=== PATIENT | female | born 1955 | race Caucasian/White ===

== ENCOUNTER 2020-02-10 12:45 | Outpatient (REF) | payer OTHER, SELFPAY ==
--- NOTE | 2020-02-10 | US_ITS ---
EXAMINATION: US RETROPERITONEAL LIMITED (RENAL ONLY) CLINICAL INFORMATION: Nephrolithiasis. COMPARISON: Renal ultrasound 01/11/2019 and 07/30/2018. CT abdomen and pelvis 07/13/2018. TECHNIQUE: Real-time imaging of the kidneys. FINDINGS: RIGHT KIDNEY: 10.2 x 5.1 x 4.9 cm (SAG x AP x TRV). The kidney is normal in size, contour, and echogenicity. Renal cortical thickness is normal. No calculi or focal parenchymal lesions. No hydronephrosis. LEFT KIDNEY: 10.8 x 5.4 x 4.7 cm (SAG x AP x TRV). The kidney is normal in size, contour, and echogenicity. Renal cortical thickness is normal. No renal calculi. There is a question of some dilated calyces present as well as parapelvic cysts. US/US renal BI IMPRESSION: Normal-appearing right kidney. Question mild fullness of the left renal upper collecting system with parapelvic cyst.. No significant hydronephrosis as was seen on prior CT scan of July 13, 2018. No evidence of nephrolithiasis.
== END 2020-02-10 12:46 | disposition home or self-care (01) ==
LOC: HO.HMGCX 12:45
PROVIDERS: PCP Internal Medicine; Visit Provider Urology
DX: N20.0 Calculus of kidney (principal)
CPT/HCPCS: 76775

== ENCOUNTER → 2020-02-24 09:09 | Outpatient (BNVA) | payer OTHER, SELFPAY | PROVIDERS: PCP Internal Medicine; Visit Provider Urology | DX: Z76.89 Persons encountering health services in other specified circumstances (principal) ==

== ENCOUNTER 2020-04-10 08:42 | Outpatient (REF) | payer OTHER, SELFPAY ==
--- NOTE | 2020-04-10 08:45 | XR_ITS ---
EXAMINATION: RADIOGRAPHS RIGHT HAND CLINICAL INFORMATION: Unspecified injury COMPARISON: None TECHNIQUE: 3 views of the right hand were obtained. FINDINGS: Visualized portion of the distal radius and ulna demonstrate no fracture. Carpal rows are well aligned. No carpal, metacarpal or phalangeal fracture. MCP and IP joints are relatively well-maintained diffusely. No focal soft tissue swelling. No radiopaque foreign body. XR/XR hand wrist RT IMPRESSION: No fracture.
--- NOTE | 2020-04-10 08:45 | XR_ITS ---
EXAMINATION: XR RIBS, RIGHT CLINICAL INFORMATION: Pleurodynia COMPARISON: None TECHNIQUE: 3 views of the right ribs were obtained. FINDINGS: Cardiac silhouette is normal in size. The lungs are well aerated. There is no lobar consolidation. No pleural effusion or pneumothorax. No right-sided rib fracture. Partially visualized fusion hardware of the lumbar spine. XR/XR ribs RT min 3V w CXR1V IMPRESSION: No right-sided rib fracture.
== END 2020-04-10 08:43 | disposition home or self-care (01) ==
LOC: HO.HMGCX 08:42
PROVIDERS: PCP Internal Medicine; Visit Provider Nurse Practitioner Family
DX: R07.81 Pleurodynia (principal); S69.91XA Unspecified injury of right wrist, hand and finger(s), initial encounter
CPT/HCPCS: 71101; 73110; 73130

== ENCOUNTER 2022-02-28 09:25 | Outpatient (REF) | payer OTHER, SELFPAY | END 2022-02-28 09:26 | disposition home or self-care (01) | LOC: HO.HMGCX 09:25 | PROVIDERS: Visit Provider Emergency Medicine | DX: Z91.81 History of falling (principal) | CPT/HCPCS: 71101 ==

== ENCOUNTER 2024-11-09 14:04 | Emergency (ER) | payer OTHER, SELFPAY ==
--- OUTSIDE RECORDS SUMMARY | 2024-07-22 07:06 | XMS_ITS ---
Author Organization [facility] Address [address] [place] [address] Care Team Providers Care Tire Adjuster Name Role Phone [facility] Unavailable [phone] REASON FOR VISIT F/U Lab results Encounters Encounter Location Date Provider Diagnosis [facility] [address] [place] [address] 07/22/2024 [facility] Plan Of Treatment No Information Progress Notes * Rafi LUIinDOB:1955 ( 69 yo F)Acc No.[id number]:07/22/2024 Progress Notes Patient: Otto JAVIER Provider: Flower VENTURA [facility] :1955 A ge:68 Y S ex:Female Date:07/22/2024 Phone: Address:[address] [place], [place] [address], [id number] Subjective: * Chief Complaints: * 1 . F/U Lab results. * Medical History: Objective: * Vitals: Assessment: Plan: * Treatment: * Billing Information: * Visit Code: * Procedure Codes: * Electronic signature of [facility] on 11/09/2024 at 05:58 PM EDT Sign off status: Pending * Provider: Flower VENTURA [facility] Date: 0 07/22/2024 Generated for Sam ly/Lalo/eTluissmitting on: 0 11/09/2024 05:58 PM EDT
--- NOTE | ~2024-11-09 | US_ITS ---
EXAMINATION: US TRIPLEX LOWER EXTREMITY, LEFT CLINICAL INFORMATION: Left lower extremity edema,, calf pain and cramping, history of DVT COMPARISON: None available. TECHNIQUE: Color-flow triplex imaging with spectral analysis and compression Doppler were performed on the left lower extremity. FINDINGS: Respiratory variation, normal compression and augmented flow are noted throughout the left lower extremity. The visualized common femoral vein, superficial femoral vein, profunda femoral vein, popliteal vein and midcalf peroneal and posterior tibial venous segments show no evidence of deep venous thrombosis. There is a small amount of anechoic fluid encircling a muscle in the mid calf region and minimal retraction. US/US venous duplex LE LT IMPRESSION: No evidence of deep venous thrombosis involving the left lower extremity. A small volume of fluid encircles calf musculature in the mid lower leg likely related to a tear with minimal retraction. Electronically signed by: Travis Pineda MD 11/09/2024 04:49 PM EDT
[2024-11-09 14:12] VITALS: BP 152/68; PULSE 59; RESP 18; TEMP 36.4; O2SAT 98; BMI 32.4
--- NOTE | 2024-11-09 14:12 | ED.GENADULT ---
HPI - General Adult General Chief complaint: Extremity Injury, Lower Stated complaint: rule out bloodclot on left leg Time Seen by Provider: 11/09/24 16:28 Source: patient and RN notes reviewed Mode of arrival: ambulatory Limitations: no limitations History of Present Illness ED Provider: Lyndon WIN narrative: Pt is a 69 yo female with a history of hyperlipidemia and DVT 10 years ago who presents with left calf pain for a few days. Pt states since this morning pain has been fluctuating, but has increased, and leg feels swollen and tight. She denies trauma to the extremity, redness, or skin trauma. She endorses mild dyspnea since this morning, but feels it is due to anxiety and allergies. She denies chest pain, palpitations, cough, fever, or chills. Ibuprofen does not improve her symptoms. She is not currently on any anticoagulation. Related Data Home Medications ?Medication ?Instructions ?Recorded ?Confirmed pravastatin 40 mg tablet 40 mg PO DAILY 02/24/20 flu vac [id number] 36mos up(PF) 60 ml IM 04/10/20 mcg (15 mcg x4)/0.5 mL IM syringe omeprazole 20 mg capsule,delayed 20 mg PO DAILY 04/10/20 release Previous Rx's ?Medication ?Instructions ?Recorded cyclobenzaprine 5 mg tablet 5 mg PO TID PRN muscle spasm #15 04/10/20 tabs lidocaine 5 % topical patch 1 patch topical DAILY #15 ea 04/10/20 Allergies Allergy/AdvReac Type Severity Reaction Status Date / Time acetaminophen (From PERCOCET) Allergy Unknown NAUSEA & Verified 11/09/24 14:14 VOMITING codeine Allergy Unknown vomiting Verified 11/09/24 14:14 hydrocodone (Vicodin) Allergy Unknown Vomiting Verified 11/09/24 14:14 morphine Allergy Unknown vomiting Verified 11/09/24 14:14 oxycodone (From PERCOCET) Allergy Unknown NAUSEA & Verified 11/09/24 14:14 VOMITING Codeine Sulfate Allergy Unknown vomiting Uncoded 11/09/24 14:14 Review of Systems Constitutional: Constitutional: Denies chills, Denies fatigue, Denies fever(s), Denies headache(s), Denies night sweats and Denies weakness ENT: Denies dizziness, Denies headache(s) and Denies sore throat Cardiovascular: Cardiovascular: Denies chest pain and Reports dyspnea Respiratory: Respiratory: Denies cough and Reports dyspnea Gastrointestinal: Gastrointestinal: Denies nausea and Denies vomiting Neurologic: Denies dizziness, Denies headache(s) and Denies weakness Endocrine: Endocrine: Denies fatigue Hematologic/Lymphatic: Hematologic/Lymphatic: Reports easy bruising PMFSH Social History Social History Advance Directives: No Advance Directives Information Provided: No Do you have a plan to hurt others: No Plan Physical Exam ED Vital Signs: Vital Signs - 24 hr 11/09/24 14:12 11/09/24 17:24 Temperature 97.6 F 97.6 F Pulse Rate 59 59 Respiratory Rate 18 18 Blood Pressure 152/68 H 152/68 H Pulse Oximetry 98 98 Oxygen Delivery Method Room Air Room Air BMI result Body Mass Index 32.4 Const General: healthy appearing, comfortable, no acute distress, alert and awake Nutritional Appearance: well nourished Orientation/consciousness: patient oriented x3 Neck Neck: Yes full ROM Resp Effort & Inspection: normal respiratory effort and able to speak in complete sentences Auscultation: clear to auscultation bilaterally, no rales, no rhonchi, no wheezes and lung sounds not diminished Cardio Rate: regular rate Rhythm: regular rhythm Skin General skin exam: no rashes or lesions noted and elasticity normal Neuro General: patient oriented x3 Cranial nerves: Yes Bilaterally intact EOM present Cognition (Neuro): normal cognition Extrem Other: Tenderness to palpation in the left [id number] calf. Negative Brian's sign. Small region of ecchymosis to the left mid calf. calf No redness or swelling noted. General: Yes full ROM Right lower extremity: normal to inspection Left lower extremity: normal to inspection Course Course Course Narrative: This is a Rapid Medical Examination (RME) performed by Holden Knight PA-C in triage. Full HPI, ROS, assessment and treatment plan per primary provider in the Main ED. Hx: 69 yo F here for eval of LLE pain/swelling/tight sensation x few days. hx of provoked DVT to LLE following leg fx years ago. no longer on AC. Plan: labs, venous duplex Medical Decision Making Medical Decision Making MDM Narrative: 69-year-old female presents for evaluation of left calf pain. She denies any specific injury but does report bumping her knee a few days ago. She denies any hyperextension or twisting injury. Her labs are reassuring, no evidence of infectious cause of her calf pain. Ultrasound was ultimately negative for DVT but does show fluid consistent with a gastrocnemius tear. I discussed this with the patient and she will follow up with her PCP. Differential Diagnosis Differential Diagnoses: The differential diagnosis associated with the presentation includes calf sprain/strain arterial insufficiency DVT PE Lab Data MDM Lab Attestation statement: I reviewed the patient's lab results. no leukocytosis or anemia. Normal platelet count. No significant electrolyte abnormalities warranting intervention. 11/09/24 14:43 11/09/24 14:43 Labs: Lab Results 11/09/24 Range/Units 14:43 WBC 7.6 (4.8-10.8) X10*3/uL RBC 4.57 (4.20-5.50) X10*6/uL Hgb 13.6 (12.0-16.0) g/dl Hct 39.6 (37.0-47.0) % MCV 86.7 (80.0-98.0) fL MCH 29.8 (27.0-33.0) pg MCHC 34.3 (31.0-35.0) g/dl RDW 12.5 (11.0-16.0) % Plt Count 239 (160-400) X10*3/uL MPV 9.5 (9.4-12.3) fL Immature Gran % (Auto) 0.3 (0.0-0.4) % Neut % (Auto) 72.6 (45-73) % Lymph % (Auto) 17.4 L (20-40) % Hunt % (Auto) 7.6 (2-11) % Eos % (Auto) 1.7 (0-4) % Baso % (Auto) 0.4 (0-2) % Lymph # (Auto) 1.3 (1.2-4.9) X10*3/uL Hunt # (Auto) 0.6 (0.1-1.2) X10*3/uL Eos # (Auto) 0.1 (0.0-0.4) X10*3/uL Baso # (Auto) 0.0 (0.0-0.2) X10*3/uL Abs Immat Gran (auto) 0.02 (0.00-0.03) X10*3/uL Absolute Neuts (auto) 5.5 (2.0-8.3) x10*3/uL Absolute Nucleated RBC 0.000 (0.0-0.012) X10*3/uL Nucleated RBC % (auto) 0.0 (0.0-0.2) /100WBC Sodium 142 (135-145) mmol/L Potassium 4.3 (3.3-5.1) mmol/L Chloride 109 H (96-108) mmol/L Carbon Dioxide 26 (22-29) mmol/L Anion Gap 11 L (12-20) BUN 14 (9-16) mg/dL Creatinine 0.92 (0.5-1.4) mg/dL Estim Creat Clear Calc 65.1 Estimated GFR > 60 Random Glucose 103 (60-115) mg/dL Calcium 9.1 (8.4-10.2) mg/dL Magnesium 2.0 (1.6-2.6) mg/dL Total Bilirubin 0.4 (0.0-1.0) mg/dL AST 22 (5-31) U/L ALT 18 (0-31) U/L Alkaline Phosphatase 71 (39-117) U/L Total Protein 6.9 (6.5-8.0) g/dL Albumin 4.5 (3.5-5.0) g/dL Radiology Impression Discussion of test interpretation with radiology: I have reviewed the radiologist's reading. Radiologist Impression: FINDINGS: Respiratory variation, normal compression and augmented flow are noted throughout the left lower extremity. The visualized common femoral vein, superficial femoral vein, profunda femoral vein, popliteal vein and midcalf peroneal and posterior tibial venous segments show no evidence of deep venous thrombosis. There is a small amount of anechoic fluid encircling a muscle in the mid calf region and minimal retraction. US/US venous duplex LE LT IMPRESSION: No evidence of deep venous thrombosis involving the left lower extremity. A small volume of fluid encircles calf musculature in the mid lower leg likely related to a tear with minimal retraction. Electronically signed by: Travis Pineda MD 11/09/2024 04:49 PM EDT Discharge Plan Discharge Clinical Impression: Strain of left calf muscle Patient Disposition: Home, Self-Care Instructions: Muscle Strain (ED) Additional Instructions: Your workup in the ER today was reassuring your blood work. Your ultrasound showed no DVT or blood clot. It does show what looks to be a small muscle tear in the gastrocnemius muscle. I recommend ice, elevation and compression. You may follow up with your primary doctor. You may follow up with Orthopedics if her symptoms are worsening or not improving Prescriptions: No Action Afluria Qd 2019-(3yr up)(PF) 60 mcg (15 mcg x 4)/0.5 mL syringe IM omeprazole 20 mg capsule,delayed release(DR/EC) 20 mg PO DAILY cyclobenzaprine 5 mg tablet 5 mg PO TID PRN (Reason: muscle spasm) Qty: 15 0RF lidocaine 5 % adhesive patch,medicated 1 patch topical DAILY Qty: 15 0RF Rx Instructions: leave on most painful area for up to 12 hrs pravastatin 40 mg tablet 40 mg PO DAILY [place] [facility] [place] [facility] [facility] [place]Provider Group] Referral Note: left calf tear Stand Alone Forms: Work/School Release Interventions: ED Discharge Assessment Last Done: 11/09/24 17:24 Print Language: Icelandic
[2024-11-09 14:49] LABS: MANUAL DIFF FLAG NO
[2024-11-09 14:51] LABS: Hematocrit 39.6 % (37.0-47.0); Hemoglobin 13.6 g/dl (12.0-16.0); Imm Gran Abs Auto 0.02 X10*3/uL (0.00-0.03); Imm Gran Pct Auto 0.3 % (0.0-0.4); Lymphocytes Absolute Auto 1.3 X10*3/uL (1.2-4.9); Mean Corpuscular HGB Conc 34.3 g/dl (31.0-35.0); Mean Corpuscular Hemoglobin 29.8 pg (27.0-33.0); Mean Corpuscular Volume 86.7 fL (80.0-98.0); NRBC Abs Auto 0.000 X10*3/uL (0.0-0.012); NRBC Pct Auto 0.0 /100WBC (0.0-0.2); Platelet Count 239 X10*3/uL (160-400); Red Blood Count 4.57 X10*6/uL (4.20-5.50); White Blood Count 7.6 X10*3/uL (4.8-10.8)
[2024-11-09 15:12] LABS: Alanine Aminotransferase 18 U/L (0-31); Albumin Level 4.5 g/dL (3.5-5.0); Alkaline Phosphatase 71 U/L (39-117); Anion Gap 11 (12-20); Aspartate Amino Transferase 22 U/L (5-31); Blood Urea Nitrogen 14 mg/dL (9-16); Calcium 9.1 mg/dL (8.4-10.2); Carbon Dioxide 26 mmol/L (22-29); Chloride 109 mmol/L (96-108); Creatinine Clr Calc Pharmacy 65.1; Estimated Glomerular Filt Rate > 60; Magnesium 2.0 mg/dL (1.6-2.6); Potassium 4.3 mmol/L (3.3-5.1); Sodium 142 mmol/L (135-145); Total Protein 6.9 g/dL (6.5-8.0)
[2024-11-09 17:24] VITALS: BP 152/68; PULSE 59; RESP 18; TEMP 36.4; O2SAT 98
--- OUTSIDE RECORDS SUMMARY | 2024-11-09 17:59 | XMS_ITS | Patient Health Record ---
Author Organization [facility] Address [address] [place] [address] Care Team Providers Care Fan Runner Name Role Phone Amando Mesa MD Primary Care Provider Unava Blayne Rivera Unavailable [phone] Allergies Allergen (clinical drug ingredient) Drug/Non Drug Allergy documented on EMR Reaction Allergy Type Onset Date Status Information temporarily unavailable Codeine Sulfate vomiting Drug Allergy Active Information temporarily unavailable Morphine Sulfate vomiting Drug Allergy Active Information temporarily unavailable Percocet vomiting Drug Allergy Active Reason For Referral No Information Medications Medication SIG (Take, Route, Frequency, Duration) Notes Start Date End Date Status Pravastatin Sodium 40 MG 1 tablet Orally Once a day; Duration: 30 day(s) Active Omeprazole 20 MG 1 capsule Orally Once a day Active Social History Tobacco Use: Social History Observation Description Date Details (start date - stop date) Former Smoker NA - NA Tobacco Use/Smoking Question Answer Notes Are you a: former smoker Additional Findings: Tobacco Non-User Current no n-smoker Alcohol Screen Question Answer Notes Did you have a drink containing alcohol in the p ast year? Yes Points 0 Interpretation Negative Tobacco use other than smoking: Question Answer Notes Are you an other tobacco user? No Plan Of Treatment No Information Insurance Providers Payer Name Payer Address Payer Phone Subscriber Number Group Number Insured Name Patient Relationship to Insured Coverage Start Date Coverage End Date [facility] [address] [facility] [place] [address] [id number] Otto Lui Self - patient is the insured Medical (General) History Medical History History ICD Code Anemia Osteoporosis Reflux ( GERD) Sinus conditions Measles Mumps Chicken pox CAD Surgical History Surgery Date(Month/Year) hysterectomy age 22 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
--- OUTSIDE RECORDS SUMMARY | 2024-11-09 17:59 | XMS_ITS | Patient Health Record ---
Author Organization [facility] Address [address] [place] [address] Care Team Providers Care Publications Designer Name Role Phone [facility] Unavailable [phone] DWAYNE STONE Unavailable [phone] Allergies No Known Allergies Reason For Referral No Information Medications Medication SIG (Take, Route, Frequency, Duration) Notes Start Date End Date Status Fluticasone Propionate 50 MCG/ACT 2 puffs per nostril Nasally Once a day; Duration: 10 days 07/08/2024 Active Benzonatate 200 MG 1 capsule as needed Orally Three times a day; Duration: 10 days 07/08/2024 Active Zithromax Z-Akin 250 MG Two tablets one d ay on then one tablet daily Orally once a day; Duration: 5 days 07/08/2024 Active Social History Tobacco Use: Social History Observation Description Date Details (start date - stop date) Former Smoker NA - NA Tobacco Control (Standard) Question Answer Notes Tobacco use: Former smoker Vital Signs Height 65 in 07/08/2024 Patient Reported Normal Blood Pressure Patient Reported Normal Temperature Weight 195 lbs 07/08/2024 Patient Reported Normal Blood Pressure Patient Reported Normal Temperature BMI 32.45 kg/m2 07/08/2024 Patient Reported Normal Blood Pressure Patient Reported Normal Temperature Encounters Encounter Location Date Provider Diagnosis [facility] [address] [place] [address] 07/08/2024 DWAYNE STONE Upper respiratory tract infection, unspecified type J06.9 Assessments Encounter Date Diagnosis (ICD Code) Assessment Notes Treatment Notes Treatment Clinical Notes Section Notes 07/08/2024 Upper respiratory tract infection, unspecified type (ICD-10 - J06.9) TREATMENT PLAN: VIRAL UPPER RESPIRATORY INFECTION Patient presents with URI symptoms which are most likely viral. There is no component of the clinical history supporting bacterial infection. This is a lower risk patient with typical mild symptoms. 1. Make sure to rule out flu/covid. We recommend that you complete the COVID-19 test ordered today. You may choose to have it conducted at a laboratory, or alternatively, you can purchase an at-home Lucira COVID-19 test from your local pharmacy instead of the lab test. If covid/flu positive, will consider paxlovid or tamiflu if you are a candidate. 2. CAUTIONTaki ng antibiotics for a viral infection or allergies is not recommended. Antibiotics are medications that fight infections caused by bacteria; but Flu, COVID, and other common infections are caused by viruses. Taking antibiotics when you actually have a viral infection does more harm than good. If you take an antibiotic when you have a viral infection, the antibiotic attacks bacteria in your body- bacteria that are either beneficial or at least not causing disease. This misdirected treatment can then promote antibiotic-resist ant properties in harmless bacteria that can be shared with other bacteria or create an opportunity for potentially harmful bacteria to replace harmless ones. This can result in untoward effects of gastrointestinal issues (diarrhea, bloating, discomfort), or worsening of symptoms due to overgrowth of harmful bacteria (pneumonia). We understand your symptoms may transform and change. Therefor, if there is no improvement in current symptoms at all in 3-5 days, you can consider antibiotic therapy but we will leave this decision to you. Consider this if you continue to have fevers >100.4F or have no improvement in symptoms at all. 3. Ibuprofen 400-800mg every 8 hours for pain, fever, chills, body aches (if not allergic) 4. Can offer benzonatate 200mg every 8 hours or bromfed liquid for cough but the efficacy is similar to over the counter cough medicine. 5. Can use over the counter cold/flu medicines for relief. Can use flonase 2 puffs per nostril as nasal steroid for inflammation relief, especially if there is postnasal drip or runny nose. Cepachol or chloraseptic for sore throat. Can also use honey. (if not allergic) 6. If desired, can send albuterol inhaler 2 puffs as needed every 6 hours for shortness of breath or wheezing to help open up airways. 7. I generally recommend avoiding treating viral infections with steroids in the acute phase (~<7 days) to allow the natural immune system to build an appropriate response. Recommended follow up in 3 days. Female patients only note: Some antibiotics and other medications can reduce control effectiveness. Check with your pharmacist and consider using extra protection to prevent . If there's any chance of , take a test first, as some medications may cause harm. All medications can affect .PATIENT EDUCATION: UPPER RESPIRATORY INFECTION Overview An upper respiratory infection, or URI, is an infection of the nose, sinuses, or throat. URIs are spread by coughs, sneezes, and direct contact. The common cold is the most frequent kind of URI. The flu and sinus infections are other kinds of URIs. Almost all URIs are caused by viruses. Antibiotics won't cure them. But you can treat most infections with home care. This may include drinking lots of fluids and taking uslt-oqg-lxgbntj pain medicine. You will probably feel better in 4 to 10 days. Follow-up care is a wright part of your treatment and safety. Be sure to make and go to all appointments, and call your doctor if you are having problems. It's also a good idea to know your test results and keep a list of the medicines you take. How can you care for yourself at home? To prevent dehydration, drink plenty of fluids. Choose water and other clear liquids until you feel better. If you have kidney, heart, or liver disease and have to limit fluids, talk with your doctor before you increase the amount of fluids you drink. Ask your doctor if you can take an ukdv-jbx-srzmddm pain medicine, such as acetaminophen (Tylenol), ibuprofen (Advil, Motrin), or naproxen (Aleve). Be safe with medicines. Read and follow all instructions on the label. No one younger than 20 should take aspirin. It has been linked to Liset syndrome, a serious illness. Be careful when taking oyvj-fnz-dwassoo cold or flu medicines and Tylenol at the same time. Many of these medicines have acetaminophen, which is Tylenol. Read the labels to make sure that you are not taking more than the recommended dose. Too much acetaminophen (Tylenol) can be harmful. Get plenty of rest. Use saline (saltwater) nasal washes to help keep your nasal passages open and wash out mucus and allergens. You can buy saline nose sprays at a grocery store or drugstore. Follow the instructions on the package. Or you can make your own at home. Add 1 teaspoon of non-iodized salt and 1 teaspoon of baking soda to 2 cups of distilled or boiled and cooled water. Fill a squeeze bottle or neti pot with the nasal wash. Then put the tip into your nostril, and lean over the sink. With your mouth open, gently squirt the liquid. Repeat on the other side. Use a vaporizer or humidifier to add moisture to your bedroom. Follow the instructions for cleaning the machine. Do not smoke or allow others to smoke around you. If you need help quitting, talk to your doctor about stop-smoking programs and medicines. These can increase your chances of quitting for good.FIRST ASYNCHRONOUS ACUTE CARE VISIT Acute Care Visit: All subsequent visits for your concern addressed today must be conducted via video consultation. Further Management: If your symptoms do not improve, consider scheduling a follow-up video visit for further assessment, or an in-person visit for a more comprehensive evaluation. 07/08/2024 Other Follow the treatment plan as indicated by the provider. Take any medications as prescribed. If you have any questions about your prescription, ask the pharmacist. This treatment plan is based on the information you have provided to us today. Incomplete disclosure of your medical history, past treatments, or current medications may affect the effectiveness of this treatment. Call 911 anytime you think you may need emergency care. For example, call if:You have severe trouble breathing.You have a seizure.Call your doctor now or seek immediate medical care if:You have trouble breathing.You have a fever with a stiff neck or a severe headache.You have pain or pressure in your chest or belly.You have a fever or cough that returns after getting better.You feel very sleepy, dizzy, or confused.You are not urinating.You have severe muscle pain.You have severe weakness, or you are unsteady.You have medical conditions that are getting worse.Watch closely for changes in your health, and be sure to contact your doctor if:You do not get better as expected.You are having a problem with your medicine. You participated in a [facility] request, considered an asynchronous visit where you provide your symptoms and medical history, and a treatment plan is formulated based on your submission. A treatment plan and patient education were provided based on your submission. If symptoms persist or worsen, you should seek in-person care or call 911 immediately for further evaluation. PRAVASTATIN SODIUM 40 MG TABDirection:Not AvailableQuantity:90 TabletDuration:90 DaysWritten Date:09/01/2023Fill Date:5Clinical InformationPrimary Diagnosis:Not AvailableSecondary Diagnosis:Not AvailableRefills Remaining:Not AvailableAdditional InformationTNDispensing Pharmacy:[facility] #[id number], [address], [place], [address]Mjgtxquafr:Not Available Plan Of Treatment Pending Test Test Name Order Date CBC (INCLUDES DIFF/PLT) (6399) SARS-CoV-2 RNA, Influenza A/B, and RSV R NA, Qualitative NAAT (28810) 07/08/2024 Insurance Providers Payer Name Payer Address Payer Phone Subscriber Number Group Number Insured Name Patient Relationship to Insured Coverage Start Date Coverage End Date [id number] [facility] [address] [place] [address] [id number] Otto Lui Self - patient is the insured
== END 2024-11-09 17:30 | disposition home or self-care (01) ==
PROVIDERS: Physician Assistant Medical; Emergency Provider Emergency Medicine Emergency Medical Services; PCP Student in an Organized Health Care Education/Training Program
DX: S86.912A Strain of unspecified muscle(s) and tendon(s) at lower leg level, left leg, initial encounter (principal); R60.0 Localized edema; R06.02 Shortness of breath; M79.605 Pain in left leg; X50.9XXA Other and unspecified overexertion or strenuous movements or postures, initial encounter; Y93.9 Activity, unspecified; Y92.9 Unspecified place or not applicable; Y99.8 Other external cause status; Z86.718 Personal history of other venous thrombosis and embolism; Z79.899 Other long term (current) drug therapy
CPT/HCPCS: 36415; 80053; 83735; 85025; 93971; 99282; 99284

== ENCOUNTER → 2024-11-09 14:14 | Outpatient (BNV) | payer OTHER, SELFPAY | PROVIDERS: PCP Student in an Organized Health Care Education/Training Program; Visit Provider Radiology Diagnostic Radiology | DX: R22.42 Localized swelling, mass and lump, left lower limb (principal) | CPT/HCPCS: 93971 ==

== ENCOUNTER 2024-11-15 14:06 | Outpatient (AMB) | payer OTHER, SELFPAY ==
--- OUTSIDE RECORDS SUMMARY | 2024-07-22 07:06 | XMS_ITS ---
Author Organization [facility] Address [address] [place] [address] Care Team Providers Care Airline Security Representative Name Role Phone [facility], [facility] Unavailable [phone] REASON FOR VISIT F/U Lab results Encounters Encounter Location Date Provider Diagnosis [facility] [address] [place] [address] 07/22/2024 [facility] Plan Of Treatment No Information Progress Notes * Rafi LUIinDOB:1955 ( 69 yo F)Acc No.[id number]:07/22/2024 Progress Notes Patient: Otto JAVIER Provider: Flower VENTURA [facility] :1955 A ge:68 Y S ex:Female Date:07/22/2024 Phone: Address:[address] [place], [place] [address], [phone] Subjective: * Chief Complaints: * 1 . F/U Lab results. * Medical History: Objective: * Vitals: Assessment: Plan: * Treatment: * Billing Information: * Visit Code: * Procedure Codes: * Electronic signature of [facility] on 11/15/2024 at 04:43 PM EDT Sign off status: Pending * Provider: Flower VENTURA [facility] Date: 07/22/2024 Generated for Sam ly/Lalo/eTmaydaitting on: 11/15/2024 04:43 PM EDT
--- NOTE | 2024-11-15 14:12 | MHC.OFFVIS ---
Vital Signs 11/15/24 14:28 Height 5 ft 5 in Weight 195 lb BMI 32.4 Intake Visit Reasons: FC-Lt calf muscle strain Intake Note: Otto is a 69 year old female who presents today for a evaluation of her left calf strain. Her pain started on 11/09/24. Patient reports she hit her knee about 2 months ago when she was mowing the lawn. She states that she wasn't feeling right one day and she works from home. When she got up form a sitting position, she developed a sharp pain in her calf. She does have a history of DVTs, which thankfully she didn't have one when she went to the ED. Patient mentions when she is sitting she feels a little pressure and when she is walking her pain is worse. She has tried taking ibuprofen when she needs it and it gives her mild relief. Allergies acetaminophen (From PERCOCET) Allergy (Unknown, Verified 11/15/24 14:22) NAUSEA & VOMITING codeine Allergy (Unknown, Verified 11/15/24 14:22) vomiting hydrocodone (Vicodin) Allergy (Unknown, Verified 11/15/24 14:22) Vomiting morphine Allergy (Unknown, Verified 11/15/24 14:22) vomiting oxycodone (From PERCOCET) Allergy (Unknown, Verified 11/15/24 14:22) NAUSEA & VOMITING Codeine Sulfate Allergy (Unknown, Uncoded 11/09/24 14:14) vomiting HPI HPI FC-Lt calf muscle strain: Details: Ms. Lui is a 69 yo female who presents to the office today for evaluation of a calf muscle injury that she sustained on 11/09/24. She states that she was moving from a seated to standing position and felt an intense pain in her calf muscle. She spoke with her PCP after she had worsening pain. She was concerned for DVT as she has had this in the past. She was directed to the ED where an ultrasound was negative for DVT but did show a small fluid collection in the calf muscle likely associated with a gastroc strain. She was dischargd and instructed to f/u with orthopedics outpatient. [facility] Social History (Updated 11/15/24 @ 14:24 by Manny Chan) Alcohol intake: current Alcohol intake frequency: holidays/special occasions only Patient Tobacco Use Status: Never used Tobacco Current occupational status: employed Current occupation: customer experience intern Review of Systems Const All systems reviewed & are unremarkable except as noted in HPI and below Physical Exam Vital Signs: BMI result Body Mass Index 32.4 Const General: cooperative, healthy appearing and no acute distress Resp Effort & Inspection: normal respiratory effort and able to speak in complete sentences Extrem Other: Left calf is supple. Tender with gastroc squeeze. Tender in the gastroc muscle with dorsiflexion. No ecchymosis or erythema. No sign of infection. Full ROM of the knee and ankle. NVI. Psych Appearance: grossly normal Mental Status: mental status grossly normal Attitude: cooperative Assessment & Plan Assessment & Plan (1) Gastrocnemius strain, left: Code(s): S86.112A - Strain of other muscle(s) and tendon(s) of posterior muscle group at lower leg level, left leg, initial encounter Category: Medical Plan While in the office today the patient was fitted for a tall walking boot off the shelf. She was instructed to wear this for one week and then gradually wean out of the boot and into a supportive walking shoe. We discussed the roll of physical therapy, however, the patient has deferred at this time. Should she continue to have pain or difficulty with ambulation over the next few weeks she will contact our office and I will place the physical therapy order for her. I would like to see her back in 4 weeks for reevaluation, sooner if needed. Coding Level of Care Code New Pt Level 3 (81104) Diagnoses Gastrocnemius strain, left S86.112A
[2024-11-15 14:28] VITALS: BMI 32.4
--- OUTSIDE RECORDS SUMMARY | 2024-11-15 16:43 | XMS_ITS | Patient Health Record ---
Author Organization [facility] Address [address] [place] [address] Care Team Providers Care Security Supervisor Name Role Phone [facility] Unavailable [phone] DWAYNE STONE Unavailable Allergies No Known Allergies Reason For Referral [...] Temperature Encounters Encounter Location Date Provider Diagnosis [facility] [address] [place] [address] 07/08/2024 DWAYNE STONE Upper respiratory tract infection, [...] include drinking lots of fluids and taking gwwf-siu-xfmskud pain medicine. You will probably feel better [...] your doctor if you can take an wfxg-rvv-awdnipm pain medicine, such as acetaminophen (Tylenol), ibuprofen (Advil, Motrin), or naproxen (Aleve). Be safe with medicines. Read and follow all instructions on the label. No one younger than 20 should take aspirin. It has been linked to Liset syndrome, a serious illness. Be careful when taking lxjh-hbd-uayslzs cold or flu medicines and Tylenol at [...] Diagnosis:Not AvailableSecondary Diagnosis:Not AvailableRefills Remaining:Not AvailableAdditional InformationTNDispensing Pharmacy:[facility] #[id number], [address] [place], [place], [address]Guawcdinlg:Not Available Plan Of Treatment Pending Test Test Name Order Date CBC (INCLUDES DIFF/PLT) (6399) SARS-CoV-2 RNA, Influenza A/B, and RSV R NA, Qualitative NAAT ([id number]) 07/08/2024 Insurance Providers Payer Name Payer Address Payer Phone Subscriber Number Group Number Insured Name Patient Relationship to Insured Coverage Start Date Coverage End Date [id number] [facility] [address] [facility] [place] [address] [id number] Otto Lui Self - patient is the insured
--- OUTSIDE RECORDS SUMMARY | 2024-11-15 16:44 | XMS_ITS | Patient Health Record ---
Author Organization [facility] Address [address] [place] [address] Care Team Providers Care Special Effects Artist Name Role Phone Amando Mesa MD Primary Care Provider UnaBlayne James Unavailable [phone] Allergies Allergen (clinical drug ingredient) Drug/Non Drug Allergy documented on EMR Reaction Allergy Type Onset Date Status codeine Codeine Sulfate vomiting Drug Allergy A ctive morphine Morphine Sulfate vomiting Drug Allergy Active acetaminophen / oxycodone Percocet vomiting Drug Allergy Active Reason For [...] Insured Coverage Start Date Coverage End Date [facility] [address] [facility] [place] [address] [id number] Otto Lui Self - patient is the insured Medical (General) History Medical History History ICD Code Anemia Osteoporosis Reflux ( GERD) Sinus conditions Measles Mumps Chicken pox CAD Surgical History Surgery Date(Month/Year) hysterectomy age 22 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
== END 2024-11-15 15:14 | disposition home or self-care (01) ==
LOC: HO.HOS 14:06
PROVIDERS: PCP Student in an Organized Health Care Education/Training Program; Visit Provider Physician Assistant
DX: S86.112A Strain of other muscle(s) and tendon(s) of posterior muscle group at lower leg level, left leg, initial encounter (principal)
CPT/HCPCS: 99203

== ENCOUNTER 2024-12-13 14:26 | Outpatient (AMB) | payer OTHER, SELFPAY ==
--- OUTSIDE RECORDS SUMMARY | 2024-07-22 07:06 | XMS_ITS ---
Author Organization [facility] Address [address] [place] [address] Care Team Providers Care Tire Changer Aircraft Name Role Phone [facility], [facility] Unavailable [phone] REASON FOR VISIT F/U Lab results Encounters Encounter Location Date Provider Diagnosis [facility] [address] [place] [address] 07/22/2024 [facility] Plan Of Treatment No Information Progress Notes * Rafi LUIinDOB:1955 ( 69 yo F)Acc No.[id number]:07/22/2024 Progress Notes Patient: Otto JAVIER Provider: Flower VENTURA [facility] :1955 A ge:68 Y S ex:Female Date:07/22/2024 Phone: Address:[address] [place], [place] [address], [phone] Subjective: * Chief Complaints: * 1 . F/U Lab results. * Medical History: Objective: * Vitals: Assessment: Plan: * Treatment: * Billing Information: * Visit Code: * Procedure Codes: * Electronic signature of [facility] on 12/13/2024 at 05:47 PM EDT Sign off status: Pending * Provider: Flower VENTURA [facility] Date: 0 07/22/2024 Generated for Sam ly/Lalo/eTluissmitting on: 1 05:47 PM EDT
--- NOTE | 2024-12-13 14:34 | MHC.OFFVIS ---
Vital Signs 12/13/24 14:36 Height 5 ft 5 in Weight 195 lb BMI 32.4 Intake Visit Reasons: OV-Lt calf muscle strain 4 wk f/u Intake Note: Otto is a 69 year old female who presents today for a follow up of her left calf strain. At her last visit she was fitted to a tall walking boot and to work with physical therapy. Patient came to the office today without walking boot, she had reported that she used it for three days then stopped because it started to hurting her back. Patient has reported that her calf feels much better, she only gets mild pain and uses ibuprofen when needed. Allergies acetaminophen (From PERCOCET) Allergy (Unknown, Verified 12/13/24 14:46) NAUSEA & VOMITING codeine Allergy (Unknown, Verified 12/13/24 14:46) vomiting hydrocodone (Vicodin) Allergy (Unknown, Verified 12/13/24 14:46) Vomiting morphine Allergy (Unknown, Verified 12/13/24 14:46) vomiting oxycodone (From PERCOCET) Allergy (Unknown, Verified 12/13/24 14:46) NAUSEA & VOMITING Codeine Sulfate Allergy (Unknown, Uncoded 11/09/24 14:14) vomiting HPI HPI OV-Lt calf muscle strain 4 wk f/u: Details: Ms. Lui is a 69-year-old female who presents to the office today for follow up of a left calf strain that she sustained on 11/09/2024. At her last appointment on 11/15/2024 she was given a tall walking boot and referred to physical therapy. She states she where the tall walking boot for a few days but then began to suffer from severe back pain. Therefore, she discontinued the boot. She has been working with physical therapy. She reports only mild discomfort occasionally in the calf. No additional complaints [facility] Social History (Updated 11/15/24 @ 14:24 by Manny Chan) Alcohol intake: current Alcohol intake frequency: holidays/special occasions only Patient Tobacco Use Status: Never used Tobacco Current occupational status: employed Current occupation: customer loyalty representative Review of Systems Const All systems reviewed & are unremarkable except as noted in HPI and below Physical Exam Vital Signs: BMI result Body Mass Index 32.4 Const General: cooperative, healthy appearing and no acute distress Resp Effort & Inspection: normal respiratory effort and able to speak in complete sentences Extrem Other: Left calf is supple and nontender. Negative Homans. Able to perform dorsiflexion and plantar flexion with no buawp-tz-mchgbw restrictions. No tenderness to the gastroc muscle belly. NVI. Psych Appearance: grossly normal Mental Status: mental status grossly normal Attitude: cooperative Assessment & Plan Assessment & Plan (1) Gastrocnemius strain, left: Code(s): S86.112A - Strain of other muscle(s) and tendon(s) of posterior muscle group at lower leg level, left leg, initial encounter Category: Medical Plan Ms. Lui is a 69-year-old female who presents to the office today for follow up of a left calf strain that she sustained on 11/09/2024. At her last appointment on 11/15/2024 she was given a tall walking boot and referred to physical therapy. She states she where the tall walking boot for a few days but then began to suffer from severe back pain. Therefore, she discontinued the boot. She has been working with physical therapy. She reports only mild discomfort occasionally in the calf. No additional complaints While in the office today, the patient was instructed that she may return back to normal activities using pain as her guide. She will continue physical therapy until all sessions have been complete. She will follow up with Orthopedics p.r.n., sooner if needed. Coding Level of Care Code Est Pt Level 3 (74734) Diagnoses Gastrocnemius strain, left S86.112A
[2024-12-13 14:36] VITALS: BMI 32.4
--- OUTSIDE RECORDS SUMMARY | 2024-12-13 17:47 | XMS_ITS | Patient Health Record ---
Author Organization [facility] Address [address] [place] [address] Care Team Providers Care Theatre Professor Name Role Phone [facility] Unavailable [phone] DWAYNE STONE Unavailable Allergies No Known Allergies [...] Temperature Encounters Encounter Location Date Provider Diagnosis [facility] [address] [place] [address] 07/08/2024 DWAYNE STONE Upper respiratory tract infection, [...] include drinking lots of fluids and taking gdaw-bhm-ogtdpif pain medicine. You will probably feel better [...] your doctor if you can take an jqei-iry-lsbhzit pain medicine, such as acetaminophen (Tylenol), ibuprofen (Advil, Motrin), or naproxen (Aleve). Be safe with medicines. Read and follow all instructions on the label. No one younger than 20 should take aspirin. It has been linked to Liset syndrome, a serious illness. Be careful when taking kizw-esv-ubdbfyd cold or flu medicines and Tylenol at [...] Diagnosis:Not AvailableSecondary Diagnosis:Not AvailableRefills Remaining:Not AvailableAdditional InformationTNDispensing Pharmacy:[facility] #[id number], [address], [place], [address]Lvsgandwet:Not Available Plan Of Treatment Pending Test Test Name Order Date CBC (INCLUDES DIFF/PLT) (6399) SARS-CoV-2 RNA, Influenza A/B, and RSV R NA, Qualitative NAAT (62159) 07/08/2024 Insurance Providers Payer Name Payer Address Payer Phone Subscriber Number Group Number Insured Name Patient Relationship to Insured Coverage Start Date Coverage End Date [id number] [facility] [address] [place] [address] [id number] Otto Lui Self - patient is the insured
== END 2024-12-13 14:59 | disposition home or self-care (01) ==
LOC: HO.HOS 14:27
PROVIDERS: PCP Student in an Organized Health Care Education/Training Program; Visit Provider Physician Assistant
DX: S86.112A Strain of other muscle(s) and tendon(s) of posterior muscle group at lower leg level, left leg, initial encounter (principal)
CPT/HCPCS: 99213